=== PATIENT | female | born 1980 | race Caucasian/White ===

== ENCOUNTER 2016-03-08 12:17 | Emergency (ER) | payer OTHER ==
[~2016-03-08] VITALS: Ht 157.5 cm; Wt 55.0 kg
[~2016-03-08 12:17] MED LIST: ADDE20TA OR; DEPO SHOT
[2016-03-08 12:26] VITALS: BP 92/67; PULSE 71; RESP 18; TEMP 99; O2SAT 98
--- NOTE | 2016-03-08 12:57 | PD ---
HPI Chief Complaint: Injury Time Seen by Provider: 12:46 Travel History International Travel<30 days: No Contact w/Intl Traveler<30days: No Traveled to known affect area: No History of Present Illness HPI 36-year-old female presents to the emergency room for evaluation of right ankle pain and swelling since yesterday. Patient states she was standing about 12 feet up and tripped on a hose causing her to fall down the distance of 12 feet landing on her feet. Upon landing, she twisted/inverted her right ankle. Patient reports some calcaneal pain at time of injury that has since dissipated. She has chronic low back pain and states pain is no worse than normal. Denies hitting her head. Denies upper or lower extremity paresthesias , loss of bowel or bladder control, and suicidal anesthesia. She took Aleve for pain last night. Patient states she has been unable to walk on her ankle since falling. She attempted once last night. Forward, striking her head on the tile. She denies any episodes of syncope, loss of consciousness, nausea, vomiting, or significant headache. She is not on blood thinners. PFSH Past Medical History ADD: Yes Diminished Hearing: No GERD: Yes ?: Not Past Surgical History Appendectomy: Yes Social History Alcohol Use: Yes (RARELY) Tobacco Use: No Substance Use: Yes (MARIJUANA) Allergies-Medications (Allergen,Severity, Reaction): Coded Allergies: Iodine (Verified Allergy, Severe, "THROAT SWELLING", 03/08/16) Shellfish (Verified Allergy, Severe, "THROAT SWELLING", 03/08/16) Codeine (Verified Allergy, Mild, HIVES, 03/08/16) Reported Meds & Prescriptions Reported Meds & Active Scripts Active Lortab (Hydrocodone-Acetaminophen) 5-325 Mg Tab 1 Tab PO Q6H PRN Review of Systems Except as stated in HPI: all other systems reviewed are Neg Physical Exam Narrative GENERAL: Well-nourished, well-developed female in no acute distress. Afebrile. SKIN: Warm and dry. No haro sign or raccoon eyes. HEAD: Normocephalic. EYES: No scleral icterus. No injection or drainage. EARS: Bilateral pinnae and external canals appear within normal limits. Bilateral tympanic membranes without erythema, dullness or perforation. No hemotympanum. NECK: Supple, trachea midline. No JVD or lymphadenopathy. CARDIOVASCULAR: Regular rate and rhythm without murmurs, gallops, or rubs. RESPIRATORY: Breath sounds equal bilaterally. No accessory muscle use. EXTREMITY: Extreme tenderness to palpation of the right lower extremity. Limited range of motion of the ankle and foot secondary to pain and swelling. Moderate edema of the right lower extremity. No tenderness to palpation and full range motion of the knee. 2+ dorsalis pedis pulse. No ecchymosis. BACK: No CVA tenderness. No rash. No point tenderness on palpation of the spine. Data Data Last Documented VS Vital Signs Date Time Temp Pulse Resp B/P Pulse Ox O2 Delivery O2 Flow Rate FiO2 03/08/16 12:26 99.0 71 18 92/67 98 Orders Tibia/Fibula (Ap/Lat) (03/08/16 ) Foot, Complete ([id number]) (03/08/16 ) Spine, Lumbar - Ltd (Ap & Lat) (03/08/16 ) Ct Cerv Spine W/O Contrast (03/08/16 ) Splint Or Brace Apply/Monitor (03/08/16 14:13) Crutches (03/08/16 14:13) MDM Medical Decision Making Medical Screen Exam Complete: Yes Emergency Medical Condition: Yes Medical Record Reviewed: Yes Differential Diagnosis Fracture versus contusion versus sprain versus strain versus muscle spasm Narrative Course 35-year-old female presents to the emergency room for evaluation of right lower extremity pain and swelling after falling 12 feet yesterday. Patient adamantly denies hitting her head or loss of consciousness. States she landed on bilateral feet but rolled her right ankle. History of chronic back pain that is no worse than normal. No significant midline tenderness. Given mechanism of injury, x-ray of the back was ordered. Denies any other injuries. She is a poor historian and changes her story several times. Patient also reports falling last night after attempting to walk on her ankle and hitting her head on tile. Letart CT rule excludes need for brain imaging at this time. She complains of slight neck discomfort but has no midline tenderness of the cervical spine and full range of motion. CT of the cervical spine is negative. X-ray of the spine shows no abnormality. Foot x-ray is negative. X-ray of the tibia/fibula shows nondisplaced fracture of the distal fibula. Right lower extremity is neurovascularly intact with 2+ dorsalis pedis pulse. No paresthesias. Patient placed in Guerrero splint and told to follow up with an orthopedist. She was discharged with orthopedic instructions, crutches, prescription for Lortab. She understands and agrees to plan. Diagnosis Primary Impression: Fracture of distal end of fibula Qualified Code: S82.831A - Closed fracture of distal end of right fibula, unspecified fracture morphology, initial encounter Referrals: Primary Care Physician Patient Instructions: Ankle Fracture (ED), General Instructions Additional Instructions: Rest and drink plenty of fluids. Keep splint on and maintain nonweightbearing status until follow-up. Take Lortab as directed, as needed for pain. Do not drink alcohol or drive while taking this medication. Take ibuprofen with food as directed, as needed for pain. Elevate and apply ice to the affected area for 20 minutes at a time, as needed for pain and swelling. Follow-up with an orthopedic surgeon. Return to the emergency room for worsening symptoms. Med/Other Pt SpecificInfo: Prescription(s) given Scripts Hydrocodone-Acetaminophen (Lortab)5-325 Mg Tab1 Tab PO Q6H PRN (PAIN) #15 TAB Ref 0 Prov:Ilia Capellan MD 03/08/16 Disposition: 01 DISCHARGE HOME Condition: Stable Angelina Sheffield Mar 08, 2016 12:57 Angelina Sheffield Mar 08, 2016 12:57
--- NOTE | 2016-03-08 14:04 | RADHPO ---
EXAM DATE/TIME: 03/08/2016 13:24 [facility] COMPARISON: SP[facility]BAR [facility]TD (AP & LAT), August 30, 2012, 14:57. INDICATIONS : Fell, low back pain MEDICAL HISTORY : None. SURGICAL HISTORY : None. ENCOUNTER: Initial ACUITY: 1 day PAIN SCORE: 9/10 LOCATION: Bilateral low back FINDINGS: Two view examination was performed. There are five non-rib bearing vertebral bodies. There is no misty dence of acute bony fracture. There is focal degenerative changes at L2-3 which are mildly increased compared to the prior examination. There some mild degenerative changes at L4. There is stable mild w edging of L2 which is unchanged compared to 2013. There is good alignment the SI joints. CONCLUSION: 1. No acute bony fracture. 2. There has been some increased primary degenerative changes at L2-3 when compared to the prior stud y. 3. Otherwise, no significant change compared to 2012. Garret Atwood MD on March 08, 2016 at 14:01 Board Certified Radiologist. This report was verified electronically.
--- NOTE | 2016-03-08 14:05 | RADHPO ---
EXAM DATE/TIME: 03/08/2016 13:29 [facility] COMPARISON: No previous studies available for comparison. INDICATIONS : Fall, right lower leg pain MEDICAL HISTORY : None. SURGICAL HISTORY : None. ENCOUNTER: Initial ACUITY: 1 day PAIN SCORE: 9/10 LOCATION: Right lower leg FINDINGS: There is soft tissue swelling at the ankle. There is a nondisplaced fracture involving the distal fib wilton. The tibia appears to be grossly seen and intact. No joint dislocation is seen. CONCLUSION: Nondisplaced fracture involving the distal fibula. Garret Atwood MD on March 08, 2016 at 14:03 Board Certified Radiologist. This report was verified electronically.
--- NOTE | 2016-03-08 14:07 | RADHPO ---
EXAM DATE/TIME: 03/08/2016 13:34 [facility] COMPARISON: No previous studies available for comparison. INDICATIONS : Fall, right foot pain MEDICAL HISTORY : None. SURGICAL HISTORY : None. ENCOUNTER: Initial ACUITY: 1 day PAIN SCORE: 9/10 LOCATION: Right foot FINDINGS: Three view examination of the right foot demonstrates no soft tissue swelling, dislocation, or fractu re. The tarsal bones appear intact. The interphalangeal and metatarsophalangeal joints are intact. The calcaneus is intact. Bony mineralization is normal. There is a nondisplaced fracture of the di stal fibula. This has been previously described. CONCLUSION: No acute fracture or joint dislocation involving the foot. Garret Atwood MD on March 08, 2016 at 14:04 Board Certified Radiologist. This report was verified electronically.
[2016-03-08] MEDS ORDERED: HYDR-3533 PO (14:14)
--- NOTE | 2016-03-08 14:36 | RADHPO ---
EXAM DATE/TIME: 03/08/2016 14:11 [facility] COMPARISON: No previous studies available for comparison. INDICATIONS : Fall today, neck pain. RADIATION DOSE: 21.44 CTDIvol (mGy) MEDICAL HISTORY : None SURGICAL HISTORY : None. ENCOUNTER: Initial ACUITY: 1 day PAIN SCALE: 3/10 LOCATION: Bilateral neck TECHNIQUE: Volumetric scanning of the cervical spine was performed. Multiplanar reconstructions in the sagittal, coronal and oblique axial planes were performed. Using automated exposure control and adjustment o f the mA and/or kV according to patient size, radiation dose was kept as low as reasonably achievable to obtain optimal diagnostic quality images. FINDINGS: VERTEBRAE: Normal vertebral body height. No acute bony fracture. There some mild degenerative changes involving the right facet at C5-6. ALIGNMENT: No evidence of subluxation. C2-C3: The bony spinal canal is normal in size. No evidence of disc bulge or herniation. The neural forami na are bilaterally patent. C3-C4: The bony spinal canal is normal in size. No evidence of disc bulge or herniation. The neural forami na are bilaterally patent. C4-C5: The bony spinal canal is normal in size. No evidence of disc bulge or herniation. The neural forami na are bilaterally patent. C5-C6: The bony spinal canal is normal in size. No evidence of disc bulge or herniation. The neural forami na are bilaterally patent. Mild degenerative changes involving the right facet joint C6-C7: The bony spinal canal is normal in size. No evidence of disc bulge or herniation. The neural forami na are bilaterally patent. C7-T1: The bony spinal canal is normal in size. No evidence of disc bulge or herniation. The neural forami na are bilaterally patent. CONCLUSION: 1. No acute bony fracture. 2. Mild facet arthritis at C5-6 on the right. Garret Atwood MD on March 08, 2016 at 14:33 Board Certified Radiologist. This report was verified electronically.
== END 2016-03-08 15:03 | disposition home or self-care (01) ==
LOC: PHEFT 12:17
DX: S82.831A Other fracture of upper and lower end of right fibula, initial encounter for closed fracture (principal); W17.89XA Other fall from one level to another, initial encounter; Y93.9 Activity, unspecified; M54.5 Low back pain; G89.29 Other chronic pain; F12.90 Cannabis use, unspecified, uncomplicated
CPT/HCPCS: 29515; 72100; 72125; 73590; 73630; 99284; E0113